=== PATIENT | male | born 1980 | race Native Hawaiian/Other Pacific Islander ===

== ENCOUNTER 2016-10-05 11:35 | Emergency (ER) | payer OTHER ==
[~2016-10-05] VITALS: Ht 180.3 cm; Wt 73.9 kg
[~2016-10-05 11:35] MED LIST: INSU100P SC; INSUINJP SC
[2016-10-05 12:40] VITALS: TEMP 98.2
[2016-10-05 13:35] VITALS: BP 138/82
== END 2016-10-05 13:35 | disposition home or self-care (01) ==
LOC: ED 11:35
DX: S20.212A Contusion of left front wall of thorax, initial encounter (principal); S20.222A Contusion of left back wall of thorax, initial encounter; S20.221A Contusion of right back wall of thorax, initial encounter; S30.0XXA Contusion of lower back and pelvis, initial encounter; M51.24 Other intervertebral disc displacement, thoracic region; W11.XXXA Fall on and from ladder, initial encounter; Y92.098 Other place in other non-institutional residence as the place of occurrence of the external cause
CPT/HCPCS: 96372; 99283; J1885

== ENCOUNTER 2017-03-08 15:53 | Inpatient (IN) | payer OTHER ==
[2017-03-07 16:00] VITALS: BP 135/80
[~2017-03-08] VITALS: Ht 180.3 cm; Wt 73.9 kg
[2017-03-08 16:47] VITALS: BP 124/72; TEMP 98.4
[2017-03-08 18:18] LABS: PLATELET COUNT 258 K/uL (142-355)
[2017-03-08 19:00] LABS: POTASSIUM 4.2 mmol/L (3.6-5.2); SODIUM 128 mmol/L (136-145)
[2017-03-09] VITALS (29 sets, daily range): BP systolic 91–162; BP diastolic 50–88; TEMP 98–98.8; Ht 180.3 cm; Wt 73.9 kg
[2017-03-09 00:51] LABS: POTASSIUM 2.8 mmol/L (3.6-5.2)
[2017-03-09 08:41] LABS: PLATELET COUNT 201 K/uL (142-355)
[2017-03-09 09:09] LABS: POTASSIUM 4.7 mmol/L (3.6-5.2); SODIUM 132 mmol/L (136-145)
[2017-03-10] VITALS (20 sets, daily range): BP systolic 105–135; BP diastolic 66–90; TEMP 98–98.8
[2017-03-10 06:32] LABS: POTASSIUM 3.3 mmol/L (3.6-5.2); SODIUM 138 mmol/L (136-145)
[2017-03-10 06:58] LABS: PLATELET COUNT 171 K/uL (142-355)
[2017-03-11] VITALS (13 sets, daily range): BP systolic 102–132; BP diastolic 59–94; TEMP 98–98.7
[2017-03-11 08:56] LABS: PLATELET COUNT 141 K/uL (142-355)
[2017-03-11 09:14] LABS: POTASSIUM 3.5 mmol/L (3.6-5.2); SODIUM 137 mmol/L (136-145)
== END 2017-03-11 13:02 | disposition home or self-care (01) | DRG 639 ==
LOC: ED 15:53 → ICU 03-09 04:51
PROVIDERS: Family Medicine; ADMIT Specialist
DX: E10.10 Type 1 diabetes mellitus with ketoacidosis without coma (principal); Z91.14 Patient's other noncompliance with medication regimen; R10.2 Pelvic and perineal pain
CPT/HCPCS: 36415; 36600; 80048; 80053; 81000; 81002; 82150; 82805; 82947; 82962; 83036; 83690; 83735; 84100; 85027; 85379; 93005; 96361; 96365; 96366; 96372; 96375; 96376; 99285; J1650; J1815; J1885; J2175; J2270; J2405; Q9963

== ENCOUNTER 2019-04-23 11:33 | Inpatient (IN) | payer OTHER ==
[~2019-04-23] VITALS: Ht 180.3 cm; Wt 77.6 kg
[2019-04-23 11:41] VITALS: BP 127/80; TEMP 97.7
[2019-04-23 12:30] VITALS: BP 140/89
[2019-04-23 12:41] LABS: PLATELET COUNT 231 K/uL (142-355)
[2019-04-23 12:44] LABS: POTASSIUM 4.7 mmol/L (3.6-5.2)
[2019-04-23 16:11] VITALS: BP 110/66; TEMP 97.9
[2019-04-23 17:14] VITALS: BP 132/81; TEMP 97.9; Ht 180.3 cm; Wt 77.6 kg
[2019-04-23 20:00] VITALS: BP 116/73; TEMP 98.2
[2019-04-23 23:52] VITALS: BP 127/82; TEMP 98.5
[2019-04-24 04:00] VITALS: BP 127/84; TEMP 98.4
[2019-04-24 05:47] LABS: PLATELET COUNT 199 K/uL (142-355)
[2019-04-24 08:20] VITALS: BP 130/88; TEMP 97.8
[2019-04-24 20:00] VITALS: BP 155/87; TEMP 97.6
[2019-04-25] VITALS: BP 106/65; TEMP 97.7
[2019-04-25 04:00] VITALS: BP 119/72; TEMP 97.7
[2019-04-25 17:06] VITALS: BP 133/88; TEMP 98.2
[2019-04-25 20:02] VITALS: BP 161/103; TEMP 97.8
[2019-04-26] VITALS: BP 122/84; TEMP 97.8
[2019-04-26 04:00] VITALS: BP 117/74; TEMP 97.6
[2019-04-26 05:20] LABS: PLATELET COUNT 207 K/uL (142-355)
[2019-04-26 05:28] LABS: POTASSIUM 4.6 mmol/L (3.6-5.2)
[2019-04-26 09:31] VITALS: BP 128/80; TEMP 98.4
[2019-04-26 12:26] VITALS: BP 131/84; TEMP 98.5
[2019-04-26] MEDS ORDERED: HYDR5TAB9 PO (16:30)
[2019-04-26] MEDS ORDERED: LEVAQUIN 500MG TAB PO (16:31)
== END 2019-04-26 17:10 | disposition home or self-care (01) | DRG 541 ==
LOC: ED 11:33 → MED/SURG 13:00
PROVIDERS: Family Medicine; ADMIT Hospitalist
DX: M86.172 Other acute osteomyelitis, left ankle and foot (principal); E10.69 Type 1 diabetes mellitus with other specified complication; Z79.4 Long term (current) use of insulin; L03.032 Cellulitis of left toe; I10 Essential (primary) hypertension; T25.032A Burn of unspecified degree of left toe(s) (nail), initial encounter; X18.XXXA Contact with other hot metals, initial encounter; Y92.89 Other specified places as the place of occurrence of the external cause
CPT/HCPCS: 36415; 80048; 80053; 80202; 82948; 83036; 83605; 85027; 85651; 86140; 87040; 87070; 87077; 87185; 87186; 87205; 96365; 96367; 96372; 96375; 99284; A9576; J1650; J1815; J1885; J1956; J2270; J2405; J2543; J3370

== ENCOUNTER 2019-06-08 08:09 | Day surgery (SDC) | payer OTHER ==
[~2019-06-08 08:09] MED LIST changes: +HYDR5TAB9 PO; +LEVAQUIN 500MG TAB PO
[2019-06-08 08:51] LABS: PLATELET COUNT 142 K/uL (142-355)
[2019-06-08 08:57] LABS: POTASSIUM 4.4 mmol/L (3.6-5.2)
== END 2019-06-08 14:26 | disposition home or self-care (01) ==
LOC: OR 08:09
PROVIDERS: Student in an Organized Health Care Education/Training Program
PROC: 0Y6Q0Z0 Detachment at Left 1st Toe, Complete, Open Approach (ICD-10-PCS; principal; 2019-06-08)
DX: M86.8X7 Other osteomyelitis, ankle and foot (principal)
CPT/HCPCS: 80053; 85027; J0132; J0690; J1100; J1170; J1885; J2001; J2250; J2405; J2704; J2765; J3010; J3490

== ENCOUNTER 2019-06-20 11:24 | Emergency (ER) | payer OTHER ==
[~2019-06-20] VITALS: Ht 180.3 cm; Wt 74.8 kg
[2019-06-20 12:55] LABS: PLATELET COUNT 159 K/uL (142-355)
[2019-06-20 14:51] VITALS: BP 127/76; TEMP 99.6
== END 2019-06-20 14:55 | disposition home or self-care (01) ==
LOC: ED 11:24
PROVIDERS: Family Medicine
DX: J02.0 Streptococcal pharyngitis (principal); L03.116 Cellulitis of left lower limb; Z89.412 Acquired absence of left great toe
CPT/HCPCS: 36415; 80053; 83605; 85027; 87040; 87070; 87077; 87185; 87186; 87205; 87502; 87651; 96365; 99284; J2543

== ENCOUNTER 2019-08-21 17:30 | Emergency (ER) | payer OTHER ==
[~2019-08-21] VITALS: Ht 180.3 cm; Wt 77.1 kg
[2019-08-21 19:14] LABS: PLATELET COUNT 234 K/uL (142-355)
[2019-08-21 19:37] VITALS: BP 144/87; TEMP 97.9
[2019-08-21 19:49] LABS: POTASSIUM 4.5 mmol/L (3.6-5.2)
== END 2019-08-21 19:37 | disposition home or self-care (01) ==
LOC: ED 17:30
PROVIDERS: Family Medicine
DX: L03.116 Cellulitis of left lower limb (principal); T81.49XA Infection following a procedure, other surgical site, initial encounter; Z89.412 Acquired absence of left great toe
CPT/HCPCS: 36415; 80053; 85027; 87040; 87070; 87205; 96372; 99283; J0696; J1885

== ENCOUNTER 2019-10-18 17:58 | Emergency (ER) | payer OTHER ==
[~2019-10-18] VITALS: Ht 180.3 cm; Wt 77.1 kg
[2019-10-18 18:05] VITALS: BP 132/73; TEMP 99.1
[2019-10-18 19:17] LABS: PLATELET COUNT 182 K/uL (142-355)
[2019-10-18 19:26] LABS: POTASSIUM 3.9 mmol/L (3.6-5.2)
== END 2019-10-18 20:05 | disposition home or self-care (01) ==
LOC: ED 17:58
PROVIDERS: Emergency Medicine
DX: M86.672 Other chronic osteomyelitis, left ankle and foot (principal); L98.8 Other specified disorders of the skin and subcutaneous tissue
CPT/HCPCS: 36415; 80053; 83605; 85027; 87040; 96360; 96365; 99284; J0696

== ENCOUNTER 2019-10-30 13:55 | Outpatient (CLI) | payer OTHER | END 2019-10-30 20:06 | disposition home or self-care (01) | LOC: MRI 13:55 | DX: M86.9 Osteomyelitis, unspecified (principal) | CPT/HCPCS: A9576 ==

== ENCOUNTER 2019-11-09 08:32 | Day surgery (SDC) | payer OTHER ==
[~2019-11-09] VITALS: Ht 30.5 cm; Wt 0.5 kg
[2019-11-09 09:46] LABS: PLATELET COUNT 195 K/uL (142-355)
== END 2019-11-09 14:18 | disposition home or self-care (01) ==
LOC: OR 08:32
PROVIDERS: Student in an Organized Health Care Education/Training Program
PROC: 0Y6N0Z9 Detachment at Left Foot, Partial 1st Ray, Open Approach (ICD-10-PCS; principal; 2019-11-09)
PROC: 30233N1 Transfusion of Nonautologous Red Blood Cells into Peripheral Vein, Percutaneous Approach (ICD-10-PCS; 2019-11-09)
DX: M86.8X7 Other osteomyelitis, ankle and foot (principal); B96.89 Other specified bacterial agents as the cause of diseases classified elsewhere
CPT/HCPCS: 80053; 85027; 86850; 86900; 86901; 86922; 87070; 87205; J0690; J2250; J2370; J2405; J2704; J3010; J3490; P9016

== ENCOUNTER 2020-07-19 16:06 | Emergency (ER) | payer OTHER ==
[~2020-07-19] VITALS: Ht 180.3 cm; Wt 77.1 kg
[2020-07-19 18:45] VITALS: BP 115/82; TEMP 98.3
== END 2020-07-19 18:45 | disposition home or self-care (01) ==
LOC: ED 16:06
PROC: 2W3CX1Z Immobilization of Right Lower Arm using Splint (ICD-10-PCS; principal; 2020-07-19)
DX: S63.591A Other specified sprain of right wrist, initial encounter (principal); W10.8XXA Fall (on) (from) other stairs and steps, initial encounter; Y92.098 Other place in other non-institutional residence as the place of occurrence of the external cause
CPT/HCPCS: 96372; 99283; J1885

== ENCOUNTER 2021-02-19 11:54 | Outpatient (CLI) | payer OTHER | END 2021-02-19 20:43 | disposition home or self-care (01) | LOC: RAD 11:54 | PROVIDERS: ATTEND Registered Nurse | DX: M79.89 Other specified soft tissue disorders (principal) ==

== ENCOUNTER 2022-10-28 09:41 | Emergency (ER) | payer OTHER ==
[~2022-10-28] VITALS: Ht 180.3 cm; Wt 84.4 kg
[~2022-10-28 09:41] MED LIST changes: +904272561 PO
[2022-10-28 09:45] VITALS: BP 131/88; TEMP 99
[2022-10-28 10:17] LABS: PLATELET COUNT 193 K/uL (142-355)
[2022-10-28 10:35] LABS: POTASSIUM 4.4 mmol/L (3.6-5.2)
[2022-10-28] MEDS ORDERED: CEPH500C20 PO (15:11)
[2022-10-29] MEDS ORDERED: ALBUTEROL108 MCG/AC INH (15:10)
[2022-10-29] MEDS ORDERED: LANTUS SOL100 UNIT/M SC (15:12)
[2022-10-29] MEDS ORDERED: INSULIN LI100 UNIT/M SC (15:14)
== END 2022-10-28 12:03 | disposition home or self-care (01) ==
LOC: ED 09:41
PROVIDERS: Family Medicine
DX: L03.115 Cellulitis of right lower limb (principal); R73.9 Hyperglycemia, unspecified
CPT/HCPCS: 80053; 82948; 83605; 85027; 96361; 96365; 96372; 96375; 99284; J1815; J1885

== ENCOUNTER 2022-11-04 07:57 | Outpatient (CLI) | payer OTHER ==
[~2022-11-04] VITALS: Ht 180.3 cm; Wt 84.8 kg
[~2022-11-04 07:57] MED LIST changes: +ALBUTEROL108 MCG/AC INH; +CEPH500C20 PO; +INSULIN LI100 UNIT/M SC; +LANTUS SOL100 UNIT/M SC
[2022-11-04 08:05] VITALS: BP 137/83; TEMP 97.8
[2022-11-04 20:35] VITALS: BP 135/76; TEMP 98.5
[2022-11-04 23:35] VITALS: BP 138/85; TEMP 98.3
== END 2022-11-04 21:00 | disposition home or self-care (01) ==
LOC: INF 07:57
PROVIDERS: ATTEND Internal Medicine Endocrinology, Diabetes & Metabolism
DX: L03.115 Cellulitis of right lower limb (principal)
CPT/HCPCS: 80202; 96365; 96366; J3370

== ENCOUNTER 2022-11-05 08:30 | Outpatient (CLI) | payer OTHER ==
[~2022-11-05] VITALS: Ht 180.3 cm; Wt 84.8 kg
[2022-11-05 08:35] VITALS: BP 120/78; TEMP 98.1
[2022-11-05 19:50] VITALS: BP 134/85; TEMP 98.6
[2022-11-05 23:10] VITALS: BP 128/78; TEMP 98.7
== END 2022-11-05 23:00 | disposition home or self-care (01) ==
LOC: INF 08:30
PROVIDERS: ATTEND Internal Medicine Endocrinology, Diabetes & Metabolism
DX: L03.115 Cellulitis of right lower limb (principal)
CPT/HCPCS: 96365; 96366; J3370

== ENCOUNTER 2022-11-06 07:47 | Outpatient (CLI) | payer OTHER ==
[~2022-11-06] VITALS: Ht 30.5 cm; Wt 0.5 kg
[2022-11-06 07:51] VITALS: BP 123/74; TEMP 98
== END 2022-11-06 23:18 | disposition home or self-care (01) ==
LOC: INF 07:47
PROVIDERS: ATTEND Internal Medicine
DX: L03.115 Cellulitis of right lower limb (principal)
CPT/HCPCS: 96365; 96366; J3370

== ENCOUNTER 2022-11-07 07:57 | Outpatient (CLI) | payer OTHER ==
[~2022-11-07] VITALS: Ht 30.5 cm; Wt 0.5 kg
[2022-11-07 07:50] VITALS: BP 132/87; TEMP 98.3
== END 2022-11-07 23:11 | disposition home or self-care (01) ==
LOC: INF 07:57
PROVIDERS: ATTEND Internal Medicine
DX: L03.115 Cellulitis of right lower limb (principal)
CPT/HCPCS: 96365; J3370